=== PATIENT | male | born 1935 | race Caucasian/White ===

== ENCOUNTER → 2017-02-17 | Outpatient (CLI) | payer MEDICARE, OTHER ==
--- NOTE | 2017-02-17 11:32 | RAD ---
2 view CXR: Clinical indications: Chest congestion with productive cough for 4 days. Comparison: July 31, 2016 Findings: A small granuloma of the right upper lobe is seen. No acute lung infiltrate or pleural effusion or pulmonary edema or lung mass or pneumothorax is seen. 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 The heart size is mildly enlarged but stable. The pulmonary vasculature, mediastinum and both enedelia are unremarkable. The osseous structures appear intact. Impression: No acute radiographic abnormality is seen.
== END | disposition home or self-care (01) ==
LOC: DXRADRC 08:06
PROVIDERS: ATTEND Physician Assistant Medical
DX: J84.10 Pulmonary fibrosis, unspecified (principal); R09.89 Other specified symptoms and signs involving the circulatory and respiratory systems; Z95.0 Presence of cardiac pacemaker
CPT/HCPCS: 71020

== ENCOUNTER → 2017-06-15 | Outpatient (CLI) | payer MEDICARE, OTHER ==
[2017-06-15] VITALS (7 sets, daily range): BP systolic 129–146; BP diastolic 51–80
[~2017-06-15] MED LIST: IV NORMAL SALINE 250ML 250 ML ONE
[2017-06-15 11:01] LABS: HEMATOCRIT 25.6 % (39.0-53.0); HEMOGLOBIN 7.6 g/dL (13.0-17.5)
--- NOTE | 2017-06-15 12:00 | NUR ---
Patient here for outpatient blood transfusion and ambulated to room 124 following lab draw. Vital signs assessed and patient oriented to the room. Laboratory notified nurse that patient's hemoglobin is 7.6 and the transfusion will need to be approved by the pathologist. Patient notified of this and stated that he would wait.
--- NOTE | 2017-06-15 12:15 | NUR ---
Spoke with lab again regarding transfusion and was told by slab miller operator that 1 unit of blood had been approved by the pathologist and that the lab had sent the information to the patient's PCP for approval before preparing the unit. Patient notified and stated that he would continue to wait.
--- NOTE | 2017-06-15 13:20 | NUR ---
Spoke with lab regarding blood transfusion and was told by the filling station laborer that the unit of blood had been approved and was ready for hand picker. IV initiated and vitals reassessed in preparation for blood transfusion.
--- NOTE | 2017-06-15 15:04 | NUR ---
Blood transfusion started at 1410. Tubing primed with NS, then primed with blood. Transfusion started at 25 mL/hr, patient watched closely x15 min. No reaction noted and transfusion increased to 75 mL/hr. Will continue with hourly vital signs. Continue to monitor.
[2017-06-15 18:32] LABS: HEMATOCRIT 25.3 % (39.0-53.0); HEMOGLOBIN 7.9 g/dL (13.0-17.5)
--- NOTE | 2017-06-15 19:03 | NUR ---
Transfusion completed at 1755 and vital signs assessed. Repeat H&H drawn and patient monitored for 1 hr following transfusion. Vital signs reassessed at 1855 and documented. IV discontinued and patient ambulated from the unit.
== END | disposition home or self-care (01) ==
LOC: OPS 10:37
PROVIDERS: ATTEND Physician Assistant Medical
DX: D64.9 Anemia, unspecified (principal)
CPT/HCPCS: 36415; 36430; 85014; 85018; 86850; 86900; 86901; 86920; J7050; P9016

== ENCOUNTER → 2017-09-13 | Outpatient (CLI) | payer MEDICARE, OTHER ==
[2017-06-15 18:55] VITALS: BP 129/57
[2017-09-13 14:44] LABS: BASO # 0.1 x10^3/uL (0.0-0.2); BASO % 1 % (0-3); EOS % 0 % (0-3); HEMATOCRIT 24.7 % (39.0-53.0); HEMOGLOBIN 7.5 g/dL (13.0-17.5); LYMPH # 1.5 x10^3/uL (1.0-4.8); LYMPH % 9 % (24-48); MEAN CORPUSCULAR HEMOGLOBIN 19 pg (25-35); MEAN CORPUSCULAR HGB CONC 30 g/dL (31-37); MEAN CORPUSCULAR VOLUME 63 fL (79-100); MONO # 0.4 x10^3/uL (0.0-1.1); MONO % 2 % (0-9); NEUT # 14.5 x10^3uL (1.8-7.7); NEUT % 88 % (31-73); PLATELET COUNT 531 x10^3/uL (140-400); RED BLOOD COUNT 3.91 x10^6/uL (4.30-5.70); RED CELL DISTRIBUTION WIDTH 22.2 % (11.5-14.5); WHITE BLOOD COUNT 16.5 x10^3/uL (4.0-11.0)
[2017-09-13 15:39] LABS: % BANDS 9 % (0-9); % BASOS 1 % (0-3); % EOS 1 % (0-5); % LYMPHS 9 % (24-48); % MYELOS 1 % (0-0); % SEGS 79 % (35-66)
[2017-09-13 15:52] LABS: PLT ESTIMATE INCREASED (ADEQUATE)
[2017-09-13 15:54] LABS: HYPOCHROMIA MOD
[2017-09-13 15:55] LABS: ANISOCYTOSIS MOD; MICROCYTOSIS MOD
== END | disposition home or self-care (01) ==
LOC: LAB 13:57
PROVIDERS: ATTEND Physician Assistant Medical
DX: R53.82 Chronic fatigue, unspecified (principal); E78.5 Hyperlipidemia, unspecified
CPT/HCPCS: 36415; 85007; 85025

== ENCOUNTER → 2017-11-10 | Outpatient (CLI) | payer MEDICARE, OTHER ==
[2017-06-15 18:55] VITALS: BP 129/57
--- NOTE | 2017-11-10 16:21 | RAD ---
Chest radiograph 11/10/2017 2:00 AM Indication: Cough Comparison: Chest radiograph 02/17/2017 Technique: PA and lateral views of the chest are provided. Findings: Cardiomediastinal silhouette is within normal limits. Left chest wall cardiac device is identified in similar position. No pleural effusions, pulmonary vascular congestion or pneumothorax. The lungs are clear. Osseous structures are normal. Impression: No acute cardiopulmonary process.
[2017-11-10 16:46] LABS: BASO # 0.1 x10^3/uL (0.0-0.2); BASO % 1 % (0-3); EOS # 0.2 x10^3/uL (0.0-0.7); EOS % 2 % (0-3); HEMATOCRIT 22.6 % (39.0-53.0); LYMPH # 0.9 x10^3/uL (1.0-4.8); LYMPH % 10 % (24-48); MEAN CORPUSCULAR HEMOGLOBIN 18 pg (25-35); MEAN CORPUSCULAR HGB CONC 29 g/dL (31-37); MEAN CORPUSCULAR VOLUME 60 fL (79-100); MONO # 0.5 x10^3/uL (0.0-1.1); MONO % 6 % (0-9); NEUT # 7.2 x10^3uL (1.8-7.7); NEUT % 82 % (31-73); PLATELET COUNT 339 x10^3/uL (140-400); RED BLOOD COUNT 3.75 x10^6/uL (4.30-5.70); RED CELL DISTRIBUTION WIDTH 21.2 % (11.5-14.5); WHITE BLOOD COUNT 8.8 x10^3/uL (4.0-11.0)
[2017-11-10 16:49] LABS: HEMOGLOBIN 6.6 g/dL (13.0-17.5)
[2017-11-10 22:19] LABS: PLT ESTIMATE ADEQUATE (ADEQUATE)
[2017-11-10 22:20] LABS: ANISOCYTOSIS MOD; HYPOCHROMIA MOD; MICROCYTOSIS MOD; POLYCHROMASIA PRESENT
== END | disposition home or self-care (01) ==
LOC: PMG 15:39
PROVIDERS: ATTEND Physician Assistant Medical
DX: R06.02 Shortness of breath (principal); E78.5 Hyperlipidemia, unspecified; Z95.0 Presence of cardiac pacemaker
CPT/HCPCS: 36415; 71046; 85025

== ENCOUNTER → 2017-11-11 | Outpatient (CLI) | payer MEDICARE, OTHER ==
[2017-11-11 11:26] LABS: HEMATOCRIT 22.5 % (39.0-53.0)
[2017-11-11 11:38] LABS: HEMOGLOBIN 6.6 g/dL (13.0-17.5)
[2017-11-11 13:10] VITALS: BP 119/63
[2017-11-11 13:34] VITALS: BP 126/56
[2017-11-11 14:35] VITALS: BP 127/55
[2017-11-11 16:20] VITALS: BP 118/75
[2017-11-11 17:20] VITALS: BP 136/86
[2017-11-11 18:25] VITALS: BP 115/77
== END ==
LOC: OPS 11:03
PROVIDERS: ATTEND Physician Assistant Medical
DX: D64.9 Anemia, unspecified (principal); C67.9 Malignant neoplasm of bladder, unspecified; R06.02 Shortness of breath
CPT/HCPCS: 36415; 36430; 85014; 85018; 86850; 86900; 86901; 86920; P9016

== ENCOUNTER → 2017-12-14 | Outpatient (CLI) | payer MEDICARE, OTHER ==
[2017-11-11 18:25] VITALS: BP 115/77
[2017-12-14 09:40] LABS: BASO # 0.1 x10^3/uL (0.0-0.2); BASO % 1 % (0-3); EOS # 0.5 x10^3/uL (0.0-0.7); EOS % 4 % (0-3); HEMATOCRIT 21.3 % (39.0-53.0); LYMPH # 3.2 x10^3/uL (1.0-4.8); LYMPH % 26 % (24-48); MEAN CORPUSCULAR HEMOGLOBIN 20 pg (25-35); MEAN CORPUSCULAR HGB CONC 30 g/dL (31-37); MEAN CORPUSCULAR VOLUME 67 fL (79-100); MONO # 1.1 x10^3/uL (0.0-1.1); MONO % 9 % (0-9); NEUT # 7.1 x10^3uL (1.8-7.7); NEUT % 59 % (31-73); PLATELET COUNT 322 x10^3/uL (140-400); RED BLOOD COUNT 3.21 x10^6/uL (4.30-5.70); RED CELL DISTRIBUTION WIDTH 25.9 % (11.5-14.5)
[2017-12-14 10:03] LABS: HEMOGLOBIN 6.3 g/dL (13.0-17.5)
[2017-12-14 10:49] LABS: PLT ESTIMATE ADEQUATE (ADEQUATE)
[2017-12-14 10:50] LABS: ANISOCYTOSIS MARKED; HYPOCHROMIA MOD; MICROCYTOSIS MOD; OVALOCYTES OCC; POLYCHROMASIA SLIGHT; SCHISTOCYTES OCC; SPHEROCYTES OCC; TARGET CELLS OCC
== END | disposition home or self-care (01) ==
LOC: PMG 09:05
PROVIDERS: ATTEND Physician Assistant Medical
DX: D64.9 Anemia, unspecified (principal); E78.5 Hyperlipidemia, unspecified
CPT/HCPCS: 36415; 85025

== ENCOUNTER → 2018-02-02 | Outpatient (CLI) | payer MEDICARE, OTHER ==
[2017-12-14 17:10] VITALS: BP 150/76
[2018-02-02 15:45] LABS: BASO # 0.1 x10^3/uL (0.0-0.2); BASO % 1 % (0-3); EOS # 0.8 x10^3/uL (0.0-0.7); EOS % 7 % (0-3); HEMATOCRIT 28.1 % (39.0-53.0); HEMOGLOBIN 8.5 g/dL (13.0-17.5); LYMPH # 2.4 x10^3/uL (1.0-4.8); LYMPH % 22 % (24-48); MEAN CORPUSCULAR HEMOGLOBIN 20 pg (25-35); MEAN CORPUSCULAR HGB CONC 30 g/dL (31-37); MEAN CORPUSCULAR VOLUME 67 fL (79-100); MONO % 10 % (0-9); NEUT # 6.3 x10^3uL (1.8-7.7); NEUT % 59 % (31-73); PLATELET COUNT 475 x10^3/uL (140-400); RED BLOOD COUNT 4.23 x10^6/uL (4.30-5.70); RED CELL DISTRIBUTION WIDTH 23.1 % (11.5-14.5); WHITE BLOOD COUNT 10.6 x10^3/uL (4.0-11.0)
[2018-02-02 22:05] LABS: HYPOCHROMIA MOD; PLT ESTIMATE INCREASED (ADEQUATE)
[2018-02-02 22:12] LABS: MICROCYTOSIS MOD; POLYCHROMASIA PRESENT
[2018-02-02 22:13] LABS: ANISOCYTOSIS MOD; OVALOCYTES FEW
[2018-02-02 22:14] LABS: SCHISTOCYTES FEW
[2018-02-02 22:18] LABS: BURR CELLS OCC
== END | disposition home or self-care (01) ==
LOC: PMG 15:11
PROVIDERS: ATTEND Physician Assistant Medical
DX: D64.9 Anemia, unspecified (principal); R31.9 Hematuria, unspecified
CPT/HCPCS: 36415; 85025

== ENCOUNTER → 2018-02-10 | Outpatient (CLI) | payer MEDICARE, OTHER ==
[2017-12-14 17:10] VITALS: BP 150/76
[~2018-02-10] MED LIST changes: +IOHEXOL 240 MG/ML 50ML VIAL. ONE; +IOHEXOL 300 MG/ML 75 ML VIAL. IV ONE; -IV NORMAL SALINE 250ML 250 ML ONE
--- NOTE | 2018-02-10 10:50 | RAD ---
CT CHEST ABD PELVIS W/CONTRAST Indication: Anemia, shortness of breath, bladder cancer Technique: Postcontrast CT imaging was performed of the chest, abdomen, pelvis, multiplanar reconstruction images submitted. One or more of the following individualized dose reduction techniques were utilized for this examination: 1. Automated exposure control 2. Adjustment of the mA and/or kV according to patient size 3. Use of iterative reconstruction technique. Contrast: 60 cc Omnipaque 300 Comparison: None CHEST: Findings: There is left electronic cardiac device. Thoracic aortic caliber is within normal limits, no intraluminal flap, mild scattered plaque. There is mild coronary calcification. There is no pericardial or pleural fluid, pneumothorax, lobar consolidation. The major airways are patent. There are some calcified pleural plaques most notable left lower lobe. Minimal density adherent to the tracheal dalton is probably due to mucus. No suspicious pulmonary nodularity is identified. There is a tiny 0.3 cm subpleural right upper lobe nodule axial image 29 and tiny 0.3 cm right upper lobe nodule near apex axial image 18. There is multilevel thoracic spondylosis. IMPRESSION: 1. There is no suspicious pulmonary nodularity, some tiny nodules for which no imaging required as per Fleischner guidelines, optional 12 month followup. 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 Abdomen and pelvis: FINDINGS: No focal abnormality is identified of the liver, spleen, pancreas. Gallbladder is present without obvious intraluminal abnormality by CT. There is a lobulated contour of the bilateral kidneys. There is a small probable cyst of the mid right kidney 0.5 cm. There is right posterolateral urinary bladder diverticulum, also smaller diverticulum more superiorly on the right. There is also small focus of exophytic density of the left superior urinary bladder best seen axial image 105 and axial images 45 up to about 0.7 cm in size, tiny diverticulum considered more likely than exophytic mass. There is some variable urinary bladder wall thickening. There is moderate to severe diverticulosis descending and sigmoid colon. There is retained stool greatest of the right colon. Bowel is not considered significantly dilated. There is no free air or free fluid. There is some fat in the inguinal canals bilaterally, no bowel. There is degenerative disc disease greatest L4-5 and L5-S1. There is no adrenal nodularity. There are inguinal nodes, on the left considered slightly prominent at 1.3 cm short axis dimension although central fatty enedelia. There are some retroperitoneal nodes, largest on the left lobe at level of bifurcation 0.9 cm short axis dimension. There is also node along the left iliac chain up to 1.8 cm short axis dimension with prominent central fatty hilum, some other smaller nodes present. There is small broad-based saccular aneurysm projecting posteriorly from the proximal infrarenal abdominal aorta up to about 0.9 cm. IMPRESSION: 1. There is variable nonspecific urinary bladder wall thickening, underlying mass possible. There are urinary bladder diverticula. Tiny focus of exophytic density of the left superior urinary bladder is more likely due to a tiny diverticulum than mass. 2. There is lobulated contour of the bilateral kidneys, also likely small cyst right kidney. 3. There are nonspecific somewhat prominent left inguinal nodes and also enlarged left iliac node although central fatty enedelia present. There are some subcentimeter retroperitoneal nodes. 4. There is colonic diverticulosis greatest of the descending and sigmoid colon without evidence of diverticulitis. 5.There is small broad-based saccular aneurysm projecting posteriorly from the proximal infrarenal abdominal aorta up to about 0.9 cm. Electronically signed by: Joesph Bedoya MD (02/10/2018 10:47 AM) [id number]
== END | disposition home or self-care (01) ==
LOC: PMG 08:08
PROVIDERS: ATTEND Physician Assistant Medical
DX: N32.3 Diverticulum of bladder (principal); K57.30 Diverticulosis of large intestine without perforation or abscess without bleeding; I71.4 Abdominal aortic aneurysm, without rupture; M51.37 Other intervertebral disc degeneration, lumbosacral region; M47.894 Other spondylosis, thoracic region; E11.9 Type 2 diabetes mellitus without complications; D64.9 Anemia, unspecified; Z79.01 Long term (current) use of anticoagulants
CPT/HCPCS: 71260; 74177; Q9966; Q9967

== ENCOUNTER → 2018-03-16 | Outpatient (CLI) | payer MEDICARE, OTHER ==
[2017-12-14 17:10] VITALS: BP 150/76
--- NOTE | 2018-03-16 11:54 | RAD ---
EXAM: Right shoulder, 3 views. HISTORY: Fall. COMPARISON: None. FINDINGS: Internal and external rotation and transscapular views of the right shoulder are obtained. There is no fracture, dislocation or subluxation. There is a subacromial spur. There is partial ventilation of cardiac pacemaker leads. There is a hypoplastic right first rib or cervical rib. IMPRESSION: 1. No acute osseous finding. 2. Subacromial spur. 3. Hypoplastic first rib or cervical rib.
== END | disposition home or self-care (01) ==
LOC: PMG 11:00
PROVIDERS: ATTEND Physician Assistant Medical
DX: M25.511 Pain in right shoulder (principal)
CPT/HCPCS: 73030

== ENCOUNTER → 2018-04-11 | Outpatient (CLI) | payer MEDICARE, OTHER ==
[2017-12-14 17:10] VITALS: BP 150/76
[2018-04-11 08:50] LABS: BASO # 0.1 x10^3/uL (0.0-0.2); BASO % 1 % (0-3); EOS # 0.5 x10^3/uL (0.0-0.7); EOS % 4 % (0-3); HEMATOCRIT 25.8 % (39.0-53.0); HEMOGLOBIN 7.6 g/dL (13.0-17.5); LYMPH # 2.4 x10^3/uL (1.0-4.8); LYMPH % 21 % (24-48); MEAN CORPUSCULAR HEMOGLOBIN 18 pg (25-35); MEAN CORPUSCULAR HGB CONC 29 g/dL (31-37); MEAN CORPUSCULAR VOLUME 61 fL (79-100); MONO # 1.2 x10^3/uL (0.0-1.1); MONO % 10 % (0-9); NEUT # 7.3 x10^3uL (1.8-7.7); NEUT % 64 % (31-73); PLATELET COUNT 466 x10^3/uL (140-400); RED BLOOD COUNT 4.25 x10^6/uL (4.30-5.70); RED CELL DISTRIBUTION WIDTH 21.9 % (11.5-14.5); WHITE BLOOD COUNT 11.5 x10^3/uL (4.0-11.0)
[2018-04-11 09:30] LABS: ANISOCYTOSIS MOD; HYPOCHROMIA MOD; MICROCYTOSIS MOD; PLT ESTIMATE INCREASED (ADEQUATE); POLYCHROMASIA SLIGHT; TARGET CELLS OCC
[2018-04-11 09:31] LABS: OVALOCYTES MOD; SCHISTOCYTES FEW
== END | disposition home or self-care (01) ==
LOC: PMG 08:01
PROVIDERS: ATTEND Physician Assistant Medical
DX: R31.9 Hematuria, unspecified (principal)
CPT/HCPCS: 36415; 85025

== ENCOUNTER → 2019-10-25 | Outpatient (CLI) | payer MEDICARE, OTHER ==
[2017-12-14 17:10] VITALS: BP 150/76
--- NOTE | 2019-10-25 17:50 | RAD ---
Thyroid ultrasound Clinical indications: Thyroid nodule on the right side seen on imaging many years ago per patient. COMPARISON: No previous thyroid ultrasound study. Chest CT dated February 10, 2018. FINDINGS: The longitudinal and AP and transverse dimensions of the left lobe are 4.6 cm and 2.1 cm and 1.0 cm respectively. The longitudinal AP and transverse dimensions of the right lobe are 5.2 cm and 3.0 cm and 3.3 cm respectively. The right lobe is enlarged due to a heterogeneous solid nodule measuring 2.8 cm in greatest dimension. Calcifications are seen within it. No significant hyperemia and seen within it. No solid lesion of the left lobe is seen. No lesion of the isthmus is seen. The isthmus measures 3 mm in thickness. IMPRESSION: 2.8 cm solid nodule of the right lobe. This measured 2.7 cm on the previous CT study. Calcifications are seen within it. This is an ACR TI RADS lesion type IV. Therefore recommend biopsy. Reference: ACR thyroid imaging, reporting and data system (TI-RADS): White paper of the ACR TI-RADS committee; J[employer]RNAL OF THE [employer]; volume 14, issue 5, pages 587-595 (March 2017) Electronically signed by: Ethan Merlos MD (10/25/2019 5:47 PM) [facility]
== END | disposition home or self-care (01) ==
LOC: US 10:46
PROVIDERS: ATTEND Physician Assistant Medical
DX: E04.1 Nontoxic single thyroid nodule (principal)
CPT/HCPCS: 76536

== ENCOUNTER → 2020-06-24 | Outpatient (CLI) | payer MEDICARE, OTHER ==
[2017-12-14 17:10] VITALS: BP 150/76
[2020-06-24 10:31] LABS: CALCIUM 8.9 mg/dL (8.5-10.1); CREATININE 1.2 mg/dL (0.7-1.3); GFR 57.7; POTASSIUM 3.8 mmol/L (3.5-5.1)
== END | disposition home or self-care (01) ==
LOC: LAB 10:03
PROVIDERS: ATTEND Internal Medicine Cardiovascular Disease
DX: Z79.899 Other long term (current) drug therapy (principal)
CPT/HCPCS: 36415; 80048

== ENCOUNTER → 2021-04-23 | Outpatient (CLI) | payer MEDICARE, OTHER ==
[2017-12-14 17:10] VITALS: BP 150/76
[2021-04-23 10:50] LABS: ALBUMIN 3.2 g/dL (3.4-5.0); ALBUMIN/GLOBULIN RATIO 1.1 (1.0-1.7); CALCIUM 9.1 mg/dL (8.5-10.1); CREATININE 1.6 mg/dL (0.7-1.3); GFR 41.3; POTASSIUM 4.7 mmol/L (3.5-5.1); TOTAL PROTEIN 6.2 g/dL (6.4-8.2)
[2021-04-23 13:31] LABS: THYROID STIM HORMONE (TSH) 1.625 uIU/mL (0.358-3.740)
== END ==
LOC: LAB 09:34
PROVIDERS: ATTEND Internal Medicine Cardiovascular Disease
DX: I10 Essential (primary) hypertension (principal); E78.2 Mixed hyperlipidemia; I48.21 Permanent atrial fibrillation; R07.9 Chest pain, unspecified; I44.7 Left bundle-branch block, unspecified; I42.9 Cardiomyopathy, unspecified
CPT/HCPCS: 36415; 80053; 80061; 84443

== ENCOUNTER → 2021-06-05 | Outpatient (CLI) | payer MEDICARE, OTHER ==
[2017-12-14 17:10] VITALS: BP 150/76
[2021-06-05 10:58] LABS: CALCIUM 8.3 mg/dL (8.5-10.1); CREATININE 1.2 mg/dL (0.7-1.3); GFR 57.5; POTASSIUM 4.6 mmol/L (3.5-5.1)
== END ==
LOC: LAB 09:48
PROVIDERS: ATTEND Internal Medicine Cardiovascular Disease
DX: I10 Essential (primary) hypertension (principal); R79.89 Other specified abnormal findings of blood chemistry
CPT/HCPCS: 36415; 80048

== ENCOUNTER → 2021-09-26 | Outpatient (CLI) | payer MEDICARE, OTHER ==
[2017-12-14 17:10] VITALS: BP 150/76
--- NOTE | 2021-09-26 10:04 | RAD ---
EXAM: Right knee, 3 views. HISTORY: Pain. Fall. COMPARISON: None. FINDINGS: 3 views of the right knee are obtained. There is a knee arthroplasty in expected position. There is no evidence of arthroplasty loosening or periprosthetic fracture. There are joint loose bodi es. There is trace joint fluid. IMPRESSION: 1. Right knee arthroplasty in expected position. 2. Trace right knee effusion. 3. Joint loose bodies. Electronically signed by: Beth Carroll MD (09/26/2021 10:01 AM) [id number]
--- NOTE | 2021-09-26 10:05 | RAD ---
EXAM: Right wrist, 3 views. HISTORY: Fall. COMPARISON: None. FINDINGS: 3 views of the right wrist are obtained. There is no acute fracture, dislocation or subluxa tion. There are suspected degenerative subchondral cysts involving the scaphoid and lunate. There are vascular calcifications. There is minimal chondrocalcinosis involving the triangular fibrocartilage complex. There is a tiny lucency along the tip of the ulnar styloid which is chronic in appearance. IMPRESSION: No acute osseous finding. Electronically signed by: Beth Carroll MD (09/26/2021 10:03 AM) [id number]
== END ==
LOC: PMG 09:37
PROVIDERS: ATTEND Nurse Practitioner Family
DX: M23.41 Loose body in knee, right knee (principal); M11.231 Other chondrocalcinosis, right wrist; Z96.651 Presence of right artificial knee joint
CPT/HCPCS: 73110; 73562